=== PATIENT | female | born 1945 | race Hispanic/Latino ===

== ENCOUNTER 2021-12-18 14:10 | Emergency (ER) | payer OTHER ==
[~2021-12-18] VITALS: Ht 160 cm; Wt 70.8 kg
[2021-12-18] MEDS ORDERED: HYDR-4060 PO ×2 (15:36→15:55)
[2021-12-18 16:13] VITALS: BP 140/88
[2021-12-18] MEDS ORDERED: ETOMIDATE 20MG VIAL IVP SCH (16:30)
== END 2021-12-18 16:17 | disposition home or self-care (01) ==
LOC: EDH 14:10
DX: S40.011A Contusion of right shoulder, initial encounter (principal); I10 Essential (primary) hypertension; Z90.49 Acquired absence of other specified parts of digestive tract; X58.XXXA Exposure to other specified factors, initial encounter; Y93.89 Activity, other specified; Y92.89 Other specified places as the place of occurrence of the external cause; Y99.8 Other external cause status